=== PATIENT | male | born 1995 | race Caucasian/White ===

== ENCOUNTER 2024-02-01 06:27 | Day surgery (SDC) | payer OTHER, SELFPAY ==
[2024-01-31 07:12] VITALS: BMI 26.9
[2024-01-31 09:06] LABS: Hemoglobin 16.7 g/dL (13.0-18.0); Mean Corp Hgb Conc. 34.1 g/dL (33.0-37.0); Mean Corpuscular Hgb 29.1 pg (27.0-31.0); Mean Corpuscular Volume 85.5 fL (80.0-94.0); Mean Platelet Volume 10.6 fL (7.4-10.4); Platelet Count 187 10^3/uL (130-400); Red Blood Cell Count 5.73 10^6/uL (4.70-6.10); Red Cell Dist. Width 13.7 % (11.5-14.5); White Blood Cell Count 8.6 10^3/uL (4.8-10.8)
[2024-01-31 09:44] LABS: Blood Urea Nitrogen 24 mg/dl (9-20); Calcium 9.9 mg/dl (8.4-10.2); Carbon Dioxide 23 mmol/L (22-30); Chloride 104 mmol/L (98-107); Estimated Creatinine Clearance > 125 ml/min; Glucose 86 mg/dl (70-99); Sodium 140 mmol/L (135-145); eGFR > 60.00
[2024-01-31 09:57] LABS: INR 1.16; PT 14.8 Sec (11.4-14.6)
[2024-01-31 09:58] LABS: APTT 30.5 Sec (23.4-35.0)
[2024-01-31 11:04] LABS: Potassium 4.5 mmol/L (3.5-5.1)
--- NOTE | 2024-01-31 13:34 | PTCARENOTE ---
Patients 4/3 EKG abnormal, reviewed by Dr. Gambino not additional interventions required
[2024-02-01] VITALS (11 sets, daily range): BP systolic 104–128; BP diastolic 55–83; BMI 26.9
--- NOTE | 2024-02-01 08:46 | PTCARENOTE ---
Abnormal ECG reviewed by Dr. Gambino; no further actions required.
[2024-02-01] MEDS: NORMOSOL-R 1000 IV (12:43)
--- NOTE | 2024-02-01 12:57 | W.SUR.PREOP ---
Pre-Operative Surgical Note
-
I have examined this patient prior to the performance of the scheduled procedure.
The patient's condition is unchanged from the time of the current History and
Physical and the patient is able to undergo the scheduled procedure.
--- NOTE | 2024-02-01 14:35 | W.IMMPOSTOP ---
Surgical Immed Post Op Note
-
Primary Surgeon: Dr. Piedad Gr DMD, MD
Assisting Surgeon: None
Pre-op Diagnosis: Impacted teeth #17,32
Post-op Diagnosis: Impacted teeth #17,32
Procedure Performed: Extraction of teeth #17,32
Anesthesia Type: General anesthesia with oral ETT
Specimen / Cultures: None
Estimated Blood Loss: 5cc
Complications: None
Operative Findings: Extraction of teeth #17,32 without issues
== END 2024-02-01 16:06 | disposition home or self-care (01) ==
LOC: SDS 06:27
PROVIDERS: ATTENDING PHYSICIAN Dentist Oral and Maxillofacial Surgery; FAMILY PHYSICIAN Family Medicine
DX: K01.1 Impacted teeth (principal); I49.8 Other specified cardiac arrhythmias; Z87.74 Personal history of (corrected) congenital malformations of heart and circulatory system
CPT/HCPCS: 41899; 80048; 85027; 85610; 85730; 93005